=== PATIENT | female | born 1945 | race Caucasian/White ===

== ENCOUNTER 2024-02-13 12:17 | Outpatient (CLI) | payer MEDICARE, OTHER, SELFPAY ==
--- NOTE | ~2024-02-13 | US_ITS ---
EXAMINATION: US FNA w image guidance DATE: 02/13/2024 13:08 INDICATION: Nontoxic single thyroid nodule. TECHNIQUE: The procedure and its benefits and risks were discussed with the patient. Risks specifically discusse d included bleeding. The patient verbalized understanding of the risks and agreed to proceed. The nec k was prepped and draped in the usual sterile manner. 1% lidocaine was used for local anesthesia. 7 passes were made with a 25G needle into the lesion under ultrasound guidance. There were no immedia te complications. FINDINGS: Grayscale ultrasound images demonstrate needles advanced into a 2.3 cm nodule in left thyroid lobe fo r biopsy. IMPRESSION: 1. Ultrasound-guided fine needle aspiration of a left thyroid nodule. Reviewed, dictated and finalized at location A.
== END 2024-02-13 12:18 | disposition home or self-care (01) ==
LOC: ANHIMG 12:22
PROVIDERS: PCP Family Medicine; Visit Provider Nurse Practitioner Family
DX: E04.1 Nontoxic single thyroid nodule (principal)
CPT/HCPCS: 10005; 88172; 88173; 88305

== ENCOUNTER 2024-04-18 08:18 | Outpatient (CLI) | payer MEDICARE, OTHER, SELFPAY ==
[2024-04-18 08:48] LABS: Alanine Aminotransferase 18 U/L (6-35); Albumin Level 3.9 g/dL (3.5-5.1); Alkaline Phosphatase 44 U/L (38-126); Aspartate Amino Transferase 24 U/L (14-36); Bilirubin,Total 0.9 mg/dL (0.2-1.3)
== END 2024-04-18 08:19 | disposition home or self-care (01) ==
LOC: ANHLAB 08:21
PROVIDERS: PCP Family Medicine; Visit Provider Nurse Practitioner Family
DX: R74.8 Abnormal levels of other serum enzymes (principal)
CPT/HCPCS: 36415; 80076

== ENCOUNTER 2025-01-06 07:31 | Outpatient (CLI) | payer MEDICARE, OTHER, SELFPAY ==
--- NOTE | ~2025-01-06 | US_ITS ---
Thyroid ultrasound. Clinical History: Multinodular goiter COMPARISON: 12/03/2023 Findings: Real-time sonography of the thyroid gland was performed. The right lobe measures 5.1 x 2.4 x 1.4 cm. The left lobe measures 4.6 x 2.5 x 1.7 cm. The isthmus is 4 mm in AP diameter. Multiple bilateral thyroid nodules are present. Largest right-sided nodule measures 1.2 x 0.8 x 0.9 c m posteriorly. Largest left-sided nodule is isoechoic measuring 2.3 x 1.6 x 1.5 cm centrally. Impression: Multiple bilateral thyroid nodules, similar in overall appearance to prior exam. Findings are most co mpatible with multinodular goiter. Reviewed, dictated and finalized at [facility]. Impression: Multiple bilateral thyroid nodules, similar in overall appearance to prior exam . Findings are most compatible with multinodular goiter.
== END 2025-01-06 07:32 | disposition home or self-care (01) ==
PROVIDERS: PCP Family Medicine
DX: E04.2 Nontoxic multinodular goiter (principal)
CPT/HCPCS: 76536